=== PATIENT | male | born 1970 | race Two or more races ===

== ENCOUNTER 2022-08-25 03:19 | Emergency (ER) | payer SELFPAY ==
[~2022-08-25] VITALS: Ht 172.7 cm; Wt 91.0 kg
[2022-08-25 03:19] VITALS: BP 126/56
[2022-08-25 04:39] LABS: Urine Bacteria NONE SEEN /hpf (None Seen); Urine Blood Negative /uL (Negative); Urine Mucus FEW (None Seen); Urine Specific Gravity 1.031 (1.001-1.035); Urine WBC 1 /hpf (0 - 3)
== END 2022-08-25 11:33 | disposition left against medical advice (07) ==
LOC: ER 03:19
DX: R10.13 Epigastric pain (principal); R11.2 Nausea with vomiting, unspecified; Z53.21 Procedure and treatment not carried out due to patient leaving prior to being seen by health care provider
CPT/HCPCS: 81001; 93005